=== PATIENT | female | born 1940 | race Caucasian/White ===

== ENCOUNTER 2016-06-18 19:41 | Emergency (ER) | payer MEDICARE, MEDICAID ==
[~2016-06-18] VITALS: Ht 152.4 cm; Wt 72.1 kg
[2016-06-18] MEDS ORDERED: ACYC1CAP8 PO (20:12)
[2016-06-18] MEDS ORDERED: CALC1TAB9 PO (20:12)
[2016-06-18] MEDS ORDERED: VOLT1GEL24 TD (20:12)
[2016-06-18] MEDS ORDERED: OMEP10CASR PO (20:12)
[2016-06-18] MEDS ORDERED: LEVO100T5 PO (20:12)
[2016-06-18] MEDS ORDERED: SYMB16INH INH (20:12)
[2016-06-18] MEDS ORDERED: FLUTISP (20:12)
[2016-06-18] MEDS ORDERED: AZIL1TAB PO (20:12)
[2016-06-18] MEDS ORDERED: BIOTLIQ9 MT (20:12)
[2016-06-18] MEDS ORDERED: NALOXONE INJ 2 MG/2 ML SYRINGE (J2310) IV STA (20:12)
[2016-06-18] MEDS ORDERED: MUPI2OI EXT (20:12)
[2016-06-18] MEDS ORDERED: B-12100010 PO (20:12)
[2016-06-18] MEDS ORDERED: CARB25TA PO (20:12)
[2016-06-18 20:44] LABS: MEAN CORPUSCULAR VOLUME 90.9 fl (80.0-96.0); WHITE BLOOD COUNT 11.8 K/mm3 (4.0-10.0)
[2016-06-18 20:45] LABS: MEAN CORPUSCULAR HEMOGLOBIN 28.4 pg (27.0-33.0); MEAN CORPUSCULAR HGB CONC 31.3 g/dl (32.0-36.5); RED CELL DISTRIBUTION WIDTH 15.6 % (11.5-14.5)
[2016-06-18 20:45] LABS: INR 1.12
[2016-06-18 21:01] LABS: BANDS 1 % (< 11)
[2016-06-18 21:19] LABS: ALBUMIN 2.3 GM/DL (3.2-5.2); ALBUMIN/GLOBULIN RATIO 0.45 (1.00-1.93); ALKALINE PHOSPHATASE 142 U/L (45-117); ALT/SGPT < 6 U/L (12-78); ANION GAP 8 MEQ/L (8-16); AST/SGOT 20 U/L (15-37); BILIRUBIN,DIRECT 0.2 MG/DL (0.0-0.2); BILIRUBIN,TOTAL 0.6 MG/DL (0.2-1.0); BLOOD UREA NITROGEN 28 MG/DL (7-18); CALCIUM LEVEL 9.8 MG/DL (8.8-10.2); CARBON DIOXIDE LEVEL 32 MEQ/L (21-32); CHLORIDE LEVEL 95 MEQ/L (98-107); CREATININE FOR GFR 1.87 MG/DL (0.55-1.02); GLUCOSE, FASTING 101 MG/DL (83-110); POTASSIUM SERUM 4.3 MEQ/L (3.5-5.1); SODIUM LEVEL 135 MEQ/L (136-145); T UPTAKE 37 % (30-39); THYROXINE (T4) 8.8 UG/DL (4.5-12.0); TOTAL PROTEIN 7.4 GM/DL (6.4-8.2)
--- NOTE | 2016-06-18 21:20 | REPUSA ---
HISTORY: Rule out deep venous thrombosis. TECHNIQUE: Realtime sonographic images were obtained in multiple projections. FINDINGS: There is evidence of echogenic material in right common femoral to popliteal vein with limited flow a nd compressibility . The remaining segments including left common femoral, mid to distal superficial femoral and popliteal veins demonstrate normal echo-free lumen, compressibility and flow. IMPRESSION: Deep venous thrombosis from right common femoral to popliteal vein. Thank you for your kind referral of this patient.
[2016-06-18 21:23] LABS: VENOUS BASE EXCESS 4.7 (-2.0-2.0); VENOUS O2 SATURATION 71.4 % (60.0-80.0); VENOUS PARTIAL PRESSURE CO2 48.3 mmHg (38.0-50.0); VENOUS PARTIAL PRESSURE O2 35.1 mmHg (30.0-50.0); VENOUS STANDARD HCO3 28.1 MEQ/L; VENOUS TOTAL CO2 31.7 MEQ/L (24.0-28.0)
[2016-06-18] MEDS ORDERED: APIXABAN 5 MG TAB (ELIQUIS) PO ONE ×2 (21:45→23:45)
[2016-06-18] MEDS ORDERED: IPRATROPIUM 0.5MG/ALBUTEROL 2.5MG INH SOL UD 3ML (DUONEB)(J7620) NEB ONE (21:45)
[2016-06-18] MEDS ORDERED: dexameTHASONE 20 MG/5 ML VIAL (J1100) IV ONE (21:45)
[2016-06-18] MEDS ORDERED: CIPROFLOXACIN 400 MG in APPROPRIATE DILUENT 1 EA IV ONE (22:15)
--- NOTE | 2016-06-18 23:40 | REPUSA ---
CLINICAL HISTORY: Loss of consciousness. COMPARISON: None TECHNIQUE: Multiple axial CT images were obtained through the brain without IV contrast material. COMMENTS: No acute intracranial hemorrhage or evidence of acute transcortical ischemia. No suspicious intra-axi al or extra-axial fluid collections, midline shift, or hydrocephalus. Normal configuration of sella t urcica noted. There are 2 bifrontal approach metallic leads terminating just above the midbrain. Prom inence of the cortical sulci and ventricular system; consistent with age-appropriate cerebral and cer ebellar and cerebral atrophy. Mild to moderate bilateral periventricular and subcortical white matter hypolucencies also noted consistent with chronic microvascular ischemic changes. 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 Posterior fossa: No enlarged mass or suspicious cystic lesion. Paranasal sinuses, mastoid air cells, and ear canals are well aerated. Orbital compartments are unrem arkable. Osseous structures/soft tissues: No acute fracture, suspicious lesion, or soft tissue abnormality. IMPRESSION: Chronic changes as described with no acute intracranial abnormality.
[2016-06-18] MEDS ORDERED: CIPR500T89 PO (23:50)
[2016-06-18] MEDS ORDERED: ELIQ5TAB PO (23:50)
[2016-06-19] MEDS ORDERED: ONDANSETRON 4MG/2ML VIAL (J2405) IV ONE (00:15)
[2016-06-19 00:43] VITALS: BP 151/66
--- NOTE | 2016-06-19 09:07 | REP ---
PORTABLE CHEST: AP portable view of the chest is performed and compared with prior study of 04/25/2016. There is poor ventilation. No infiltrate is seen in either lung. Metallic device again overlies the lateral lower right hemithorax limiting evaluation of the underlying lung field. Cardiac silhouette is slightly prominent. There is calcification and tortuosity of the thoracic aorta. The mediastinal silhouette is unchanged. Metallic fixation is seen in the lower cervical spine. IMPRESSION: No acute infiltrate. Signed by Isaiah Huber MD 06/19/2016 12:57 P
== END 2016-06-19 01:45 | disposition home or self-care (01) ==
LOC: EDBD 19:41 → M ED 20:40
DX: I82.401 Acute embolism and thrombosis of unspecified deep veins of right lower extremity (principal); N39.0 Urinary tract infection, site not specified; J44.9 Chronic obstructive pulmonary disease, unspecified; G20 Parkinson's disease; F33.9 Major depressive disorder, recurrent, unspecified; E03.9 Hypothyroidism, unspecified; Z79.899 Other long term (current) drug therapy; Z79.01 Long term (current) use of anticoagulants; Z88.5 Allergy status to narcotic agent; Z88.7 Allergy status to serum and vaccine; Z88.8 Allergy status to other drugs, medicaments and biological substances
CPT/HCPCS: 70450; 71010; 80048; 80076; 81001; 82140; 82803; 83605; 84436; 84443; 84479; 85007; 85027; 85610; 85730; 87040; 87088; 87186; 93970; 94640; 96365; 96375; 99284; J0744; J1100; J2310